=== PATIENT | male | born 1975 | race Caucasian/White ===

== ENCOUNTER 2018-02-04 17:55 | Emergency (ER) | payer BC, MEDICARE ==
[2018-02-04] MEDS ORDERED: Ondansetron 4 MG Tab.DIS PO ONE (18:15)
[2018-02-04] MEDS ORDERED: Ketorolac 60 MG/2 ML SDV IM ONE (18:15)
--- NOTE | 2018-02-04 18:20 | EDM.PDOC ---
ED HPI GENERAL MEDICAL PROBLEM - General Chief Complaint: General Stated Complaint: PAIN IN THE BOTTOM Time Seen by Provider: 02/04/18 18:05 Source of Information: Reports: Patient History Limitations: Reports: No Limitations - History of Present Illness INITIAL COMMENTS - FREE TEXT/NARRATIVE: History of present illness: []Patient has noted pain near his rectum 3 days ago that is progressively worsening. Review of systems: As per history of present illness and below otherwise all systems reviewed and negative. Past medical history: As per history of present illness and as reviewed below otherwise noncontributory. Surgical history: As per history of present illness and as reviewed below otherwise noncontributory. Social history: No reported history of drug or alcohol abuse. Family history: As per history of present illness and as reviewed below otherwise noncontributory. Physical exam: General: Well developed, well nourished in NAD HEENT: Atraumatic, normocephalic, pupils reactive, negative for conjunctival pallor or scleral icterus, mucous membranes moist, throat clear, neck supple, nontender, trachea midline. Lungs: Clear to auscultation, breath sounds equal bilaterally, chest nontender. Heart: S1S2, regular, negative for clicks, rubs, or JVD. Abdomen: NABS, Soft, nondistended, nontender. Negative for masses or hepatosplenomegaly. Negative for costovertebral tenderness. Pelvis: Stable nontender. Genitourinary: Deferred. Rectal: No obvious abscess there is a tender area just left of the anus without skin changes or swelling. There is no noted fluctuance Extremities: Atraumatic, negative for cords or calf pain. Neurovascular unremarkable. Neuro: Awake, alert, oriented. Cranial nerves II through XII unremarkable. Cerebellum unremarkable. Motor and sensory unremarkable throughout. Exam nonfocal. Skin:warm and dry Diagnostics: None Therapeutics: Zofran, Toradol, clindamycin ED Course: Unremarkable Impression: Perirectal abscess likely early Prescriptions: Clindamycin, tramadol Plan: Follow-up with general surgery this week. Return to ER if symptoms worsen or change Definitive disposition and diagnosis as appropriate pending reevaluation and review of above. - Related Data Allergies Allergy/AdvReac Type Severity Reaction Status Date / Time No Known Allergies Allergy Verified 02/04/18 18:05 Home Meds: Home Meds Clindamycin HCl 300 mg PO TID #30 capsule 02/04/18 [Rx] QUEtiapine Fumarate [Seroquel] 200 mg PO DAILY 02/04/18 [History] traMADol HCl [Tramadol HCl] 50 mg PO Q6H PRN #16 tablet 02/04/18 [Rx] ED ROS GENERAL - Review of Systems Review Of Systems: ROS reveals no pertinent complaints other than HPI. ED EXAM, GENERAL - Physical Exam Exam: See Below (See history of present illness) Course - Vital Signs Last Recorded V/S: Last Vital Signs Temp 98.8 F 02/04/18 18:05 Pulse 103 H 02/04/18 18:05 Resp 20 02/04/18 18:05 BP 120/92 H 02/04/18 18:05 Pulse Ox 96 02/04/18 18:05 Departure - Departure Time of Disposition: 18:19 Disposition: Home, Self-Care 01 Condition: Good Clinical Impression: Perirectal discomfort - Discharge Information *PRESCRIPTION DRUG MONITORING PROGRAM REVIEWED*: No *COPY OF PRESCRIPTION DRUG MONITORING REPORT IN PATIENT MARYJANE: No Prescriptions: Clindamycin HCl 300 mg PO TID #30 capsule traMADol HCl [Tramadol HCl] 50 mg PO Q6H PRN #16 tablet PRN Reason: Pain Referrals: PCP,None [Primary Care Provider] - Adele Aly MD [Physician] - Additional Instructions: The following information is given to patients seen in the emergency department who are being discharged to home. This information is to outline your options for follow-up care. We provide all patients seen in our emergency department with a follow-up referral. The need for follow-up, as well as the timing and circumstances, are variable depending upon the specifics of your emergency department visit. If you don't have a primary care physician on staff, we will provide you with a referral. We always advise you to contact your personal physician following an emergency department visit to inform them of the circumstance of the visit and for follow-up with them and/or the need for any referrals to a consulting specialist. The emergency department will also refer you to a specialist when appropriate. This referral assures that you have the opportunity for follow-up care with a specialist. All of these measure are taken in an effort to provide you with optimal care, which includes your follow-up. Under all circumstances we always encourage you to contact your private physician who remains a resource for coordinating your care. When calling for follow-up care, please make the office aware that this follow-up is from your recent emergency room visit. If for any reason you are refused follow-up, please contact the [facility] Emergency Department at and asked to speak to the emergency department charge nurse. warm soaks as much as possible, use will softeners, take ibuprofen or tramadol for pain, use antibiotic as directed follow-up with general surgery next available appointment or return to the ER if symptoms worsen or change. [facility] Specialty Care - General Surgery Professional Building [address] [place] [address], [address] [place] [address]
== END 2018-02-04 19:10 | disposition home or self-care (01) ==
LOC: MW.ED 17:55
DX: K62.9 Disease of anus and rectum, unspecified (principal)
CPT/HCPCS: 96372; 99283; A9270; J1885

== ENCOUNTER 2018-02-07 07:41 | Day surgery (SDC) | payer MEDICARE, BC ==
[~2018-02-07 07:41] MED LIST: Lactated Ringers 1,000 ML IV SCH; Sodium Chloride 0.9% 10 ML Syringe FLUSH PRN; Sodium Chloride 0.9% 2.5 ML Syringe FLUSH PRN; cefOXitin 2 GM in Premix Bag 1 BAG IV ONE
--- NOTE | 2018-02-07 08:17 | PCM.PREANE ---
Preanesthetic Assessment - Anesthesia/Transfusion/Family Hx Anesthesia History: Prior Anesthesia Without Reaction Family History of Anesthesia Reaction: No Transfusion History: No Prior Transfusion(s) - Review of Systems General: No Symptoms Pulmonary: No Symptoms Cardiovascular: No Symptoms Gastrointestinal: Other (guerrero anal abcess) Other: Reports: Depression (bipolar 1, under good controll) - Physical Assessment Height: 1.78 m Weight: 94.801 kg ASA Class: 2 Mental Status: Alert & Oriented x3 Airway Class: Mallampati = 1 Dentition: Reports: Normal Dentition ROM/Head Extension: Full Lungs: Clear to Auscultation, Normal Respiratory Effort Cardiovascular: Regular Rate, Regular Rhythm - Allergies Allergies/Adverse Reactions: Allergies Allergy/AdvReac Type Severity Reaction Status Date / Time No Known Allergies Allergy Verified 02/06/18 12:48 - Blood Blood Available: No - Anesthesia Plan Pre-Op Medication Ordered: None - Acknowledgements Anesthesia Type Planned: General Anesthesia Pt an Appropriate Candidate for the Planned Anesthesia: Yes Alternatives and Risks of Anesthesia Discussed w Pt/Guardian: Yes Pt/Guardian Understands and Agrees with Anesthesia Plan: Yes Additional Comments: PMH: 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, 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 PLAM: prone positioning, GET PreAnesthesia Questionnaire Cardiovascular History: Reports: Other (See Below) Other Cardiovascular History: heart mumur as an Musculoskeletal History: Reports: Other (See Below) Other Musculoskeletal History: states has seperated rt shoulder at present Endocrine/Metabolic History: Reports: Obesity/BMI 30+ - Infectious Disease History Infectious Disease History: Reports: Chicken Pox - Past Surgical History Head Surgeries/Procedures: Reports: None Musculoskeletal Surgical History: Reports: Amputation, Other (See Below) Other Musculoskeletal Surgeries/Procedures:: rt leg surgeries x11, Right BKA, left lower leg surgery x2 , partial amputation of left foot - SUBSTANCE USE Smoking Status *Q: Never Smoker Tobacco Use Within Last Twelve Months: Other (See Below) Recreational Drug Use History: No - HOME MEDS Home Medications: Home Meds Clindamycin HCl 300 mg PO TID #30 capsule 02/04/18 [Rx] QUEtiapine Fumarate [Seroquel] 200 mg PO BEDTIME 02/04/18 [History] Acetaminophen [Tylenol] 2 tab PO ASDIRECTED PRN 02/06/18 [History] - CURRENT (IN HOUSE) MEDS Current Meds: Current Medications Lactated Ringer's (Ringers, Lactated) 1,000 mls @ 125 mls/hr IV ASDIRECTED VITO Sodium Chloride (Saline Flush) 10 ml FLUSH ASDIRECTED PRN PRN Reason: Keep Vein Open Sodium Chloride (Saline Flush) 2.5 ml FLUSH ASDIRECTED PRN PRN Reason: Keep Vein Open Discontinued Medications Cefoxitin Sodium 2 gm/ Premix 50 mls @ 100 mls/hr IV ONETIME ONE Stop: 02/07/18 07:29
[2018-02-07] MEDS ORDERED: Propofol 200 MG/20 ML SDV ONE (08:21)
[2018-02-07] MEDS ORDERED: fentaNYL 250 MCG/5 ML SDV ONE (08:22)
[2018-02-07] MEDS ORDERED: Midazolam 1 MG/ML 2 ML SDV ONE (08:22)
[2018-02-07] MEDS ORDERED: Lidocaine 2% 5 ML SDV ONE (08:24)
[2018-02-07] MEDS ORDERED: Ondansetron 4 MG/2 ML SDV ONE (08:24)
[2018-02-07] MEDS ORDERED: Rocuronium 10 MG/ML 10 ML Syringe ONE (08:24)
[2018-02-07] MEDS ORDERED: ceFAZolin 1 GM Vial ONE (09:09)
[2018-02-07] MEDS ORDERED: Sodium Chloride 0.9% 20 ML ONE (09:10)
[2018-02-07] MEDS ORDERED: Bupivacaine 0.5% 10 ML SDV ONE (09:15)
[2018-02-07] MEDS ORDERED: Glycopyrrolate 0.2 MG/ML SDV ONE (09:46)
[2018-02-07] MEDS ORDERED: Neostigmine Methylsulfate 1 MG/ML 5 ML Syringe ONE (09:46)
--- NOTE | 2018-02-07 10:06 | PCM.OPNOTE ---
- General Post-Op/Procedure Note Date of Surgery/Procedure: 02/07/18 Operative Procedure(s): Incision and drainage perianal abscess Findings: 2 x 2 x 4 cm posterior perianal abscess. No evidence of a fistula Pre Op Diagnosis: Perianal abscess Post-Op Diagnosis: perianal abscess Anesthesia Technique: General ET Tube Primary Surgeon: Adele Aly EBL in mLs: 5 Condition: Good
--- NOTE | 2018-02-07 10:33 | PCM.POSTAN ---
POST ANESTHESIA ASSESSMENT - MENTAL STATUS Mental Status: Alert, Oriented - RESPIRATORY Respiratory Status: Respiratory Rate WNL, Airway Patent, O2 Saturation Stable - CARDIOVASCULAR CV Status: Pulse Rate WNL, Blood Pressure Stable - GASTROINTESTINAL GI Status: No Symptoms - PAIN Pain Score: 5 - POST OP HYDRATION Hydration Status: Adequate & Stable - OBSERVATIONS Free Text/Narrative:: no anesthesia problems
[2018-02-07] MEDS ORDERED: HYDROmorphone 2 MG/ML SDV IVPUSH ONE (10:52)
[2018-02-07] MEDS ORDERED: HYDROmorphone 2 MG/ML Syringe IVPUSH ONE (11:00)
[2018-02-07] MEDS ORDERED: Acetaminophen/oxyCODONE 325-5 MG Tab PO PRN (11:11)
[2018-02-07] MEDS ORDERED: Acetaminophen/oxyCODONE 325-5 MG Tab ONE (11:19)
--- NOTE | 2018-02-08 12:52 | OR ---
SURGEON: NABILA WHITING MD DATE OF PROCEDURE: 02/07/2018 PREOPERATIVE DIAGNOSIS: Perianal abscess. POSTOPERATIVE DIAGNOSIS: Perianal abscess.. PROCEDURE PERFORMED: Exam under anesthesia, incision and drainage of perianal abscess. FLUIDS: 1300 mL of crystalloid. ESTIMATED BLOOD LOSS: 5 mL. FINDINGS: 2 x 2 x 4 cm left posterior perianal abscess. No evidence of the fistula. COMPLICATIONS: None. INDICATIONS: The patient is a 43-year-old male with one week worth of perianal pain and swelling. CT scan done yesterday showed a 2 cm abscess consistent with a perianal abscess. I explained the need for incision and debridement. I explained the procedure, expected perioperative course, and risks including bleeding, infection, or damage to surrounding structures resulting in alteration of continence. The patient verbalized understanding and wishes to proceed. PROCEDURE IN DETAIL: The patient was brought into the OR and placed on the OR cart. A time-out was completed verifying the patient's name, age, date of , allergies, and procedure to be performed. General endotracheal anesthesia was induced. Once the patient was asleep, he was then placed on the operating room table in prone jessica-knife position taking care to pad all bony prominences and appropriately secured the patient to the table. Once this was completed, the buttocks and the anoderm were prepped and draped in usual standard fashion. A digital rectal exam was performed, this revealed a thickened and inflamed area just left of the posterior midline. A 25-gauge needle was placed in the area of maximum inflammation in the left posterior position on the anoderm. I aspirated purulent appearing material. A cruciate incision was made over this area with an 11-blade scalpel. Immediately encountered purulent material. Using a hemostat, I then explored the abscess cavity and broke up any loculations. The abscess cavity was then irrigated with normal saline and I used a fistula probe to measure the cavity itself. It measured 2 x 2 x 4 cm in size. Using the fistula probe, I attempted to see if there was any connection suggesting a perianal fistula. A bivalve proctoscope was inserted into the anus. I did not identify any fistula. Hydrogen peroxide was used to flood the abscess cavity and there was no hydrogen peroxide noted within the anal canal. The remainder of the anal canal was explored and found to be normal. I irrigated the abscess cavity once again, and then packed it with quarter-inch Nu-Gauze. I anesthetized the anoderm circumferentially with 0.5% Marcaine plain. Fluffs were then placed over the area and secured in place with mesh underwear. The patient was placed back on the OR cart in supine position and extubated. All counts were complete and correct at the end of the case. The patient was taken to PACU in stable condition. RAMÍREZ THOMAS /[id number] MTDD
== END 2018-02-07 11:50 | disposition home or self-care (01) ==
LOC: MW.SDS 07:41 → EDSTATUS 09:15 → MW.SDS 11:50
PROVIDERS: ATTEND Surgery
DX: K61.0 Anal abscess (principal); F31.70 Bipolar disorder, currently in remission, most recent episode unspecified; E66.9 Obesity, unspecified; Z68.30 Body mass index [BMI] 30.0-30.9, adult; Z79.899 Other long term (current) drug therapy; Z88.1 Allergy status to other antibiotic agents
CPT/HCPCS: 46050; A9270; J0690; J1170; J2001; J2250; J2405; J2704; J3010; J3490; J7120; 00902